=== PATIENT | female | born 1985 | race Caucasian/White ===

== ENCOUNTER 2017-08-12 12:45 | Emergency (ER) | payer SELFPAY ==
--- NOTE | 2017-08-15 12:08 | ER ---
ADMIT: 08/12/2017 RM/LOC: [facility] MR#: [id number] [id number] [address] [place] [address] Emergency Room Report SEX: F AGE: 32 : 1985 DATE: 08/12/2017 SUBJECTIVE: The patient is a 32-year-old female, who presents to emergency room with vomiting and diarrhea for 5 days. She works at a [employer] locally, and she says there is no telling what is going on, but I feel very dehydrated. She is allergic to lots of things and it does include Dimetapp, Levaquin, Avelox, penicillin, codeine, Zithromax, Augmentin, and environmental allergies as well. REVIEW OF SYSTEMS: Negative except for the weakness she has from throwing up and diarrhea. PAST MEDICAL HISTORY: Negative except for: 1. Right elbow surgery. 2. Left knee surgery. 3. . 4. Hysterectomy. PHYSICAL EXAMINATION: VITAL SIGNS: Blood pressure 126/89, heart rate 80, respirations 16, temperature is 98.8, O2 sats 100%. GENERAL: Mildly anxious, alert. NECK: Supple. RESPIRATIONS: No distress. Breath sounds are normal. CVS: Regular in rate and rhythm. ABDOMEN: Tenderness in her lower abdomen. BACK: Normal inspection. SKIN: Good color and turgor. EXTREMITIES: Well perfused. NEURO: Oriented x4. PSYCH: Mood and affect are appropriate. ADMIT: 08/12/2017 RM/LOC: [facility] MR#: [id number] [id number] [address] [place] [address] Emergency Room Report SEX: F AGE: 32 : 1985 LABORATORY DATA: Her urine shows blood, trace with granular casts and protein 1+. IV fluids given as well as Zofran. She feels much better. She was unable to give us a sample of stool to process it for bacteria or any other pathogen. She will be going home with a kit to do that in the privacy of her home and then bring it to the lab. CLINICAL IMPRESSION: 1. Dehydration. 2. Gastroenteritis. She was given a prescription for Zofran. Follow up with city call, Key Mcgregor PA / León Clement MD / malcolm JOB #: [id number] CC: León Clement MD, Attending Physician
== END 2017-08-12 20:21 | disposition home or self-care (01) ==
LOC: ER 12:45
DX: E86.0 Dehydration (principal); K52.9 Noninfective gastroenteritis and colitis, unspecified; R19.7 Diarrhea, unspecified; Z90.710 Acquired absence of both cervix and uterus; Z98.890 Other specified postprocedural states; Z88.0 Allergy status to penicillin; Z88.1 Allergy status to other antibiotic agents; Z88.8 Allergy status to other drugs, medicaments and biological substances; Z91.018 Allergy to other foods; Z91.048 Other nonmedicinal substance allergy status